=== PATIENT | female | born 1935 | race Caucasian/White ===

== ENCOUNTER → 2017-01-01 | Outpatient (CLI) | payer MEDICARE ==
[~2017-01-01] MED LIST: ASPI-496 PO; ATOR20TA9 PO; BUPR100T11 PO; CALC0.5C PO; CALC200T10 PO; CYAN10005 PO; HYDR-3144 PO; LEVO50TA PO; LEVO88TA4 PO; LISI5TAB7 PO; MAGN400T7 PO; MULT-257 PO; Magnesium Oxide PO; OMEP20TA62 PO; POTA20TA6 PO; PRAS10TA4 PO; ROPI1TAB2 PO; SIMV20TA3 PO
== END | disposition home or self-care (01) ==
LOC: CFH 09:54
PROVIDERS: ATTEND Radiology Radiation Oncology
DX: C34.12 Malignant neoplasm of upper lobe, left bronchus or lung (principal); I25.10 Atherosclerotic heart disease of native coronary artery without angina pectoris; K80.80 Other cholelithiasis without obstruction; J43.9 Emphysema, unspecified; J47.9 Bronchiectasis, uncomplicated; R91.1 Solitary pulmonary nodule; J98.4 Other disorders of lung; M85.80 Other specified disorders of bone density and structure, unspecified site; M41.85 Other forms of scoliosis, thoracolumbar region; M48.54XA Collapsed vertebra, not elsewhere classified, thoracic region, initial encounter for fracture
CPT/HCPCS: 71250

== ENCOUNTER → 2017-01-02 | Outpatient (CLI) | payer MEDICARE | END | disposition home or self-care (01) | LOC: ROC 09:53 | PROVIDERS: ATTEND Radiology Radiation Oncology | DX: C34.12 Malignant neoplasm of upper lobe, left bronchus or lung (principal); R91.8 Other nonspecific abnormal finding of lung field | CPT/HCPCS: 99213; G0463 ==

== ENCOUNTER → 2017-05-15 | Outpatient (CLI) | payer MEDICARE | END | disposition home or self-care (01) | LOC: CFH 13:51 | PROVIDERS: ATTEND Radiology Radiation Oncology | DX: J43.9 Emphysema, unspecified (principal); J47.9 Bronchiectasis, uncomplicated; R91.8 Other nonspecific abnormal finding of lung field; I70.0 Atherosclerosis of aorta; M47.894 Other spondylosis, thoracic region; M47.896 Other spondylosis, lumbar region; K80.20 Calculus of gallbladder without cholecystitis without obstruction; C34.12 Malignant neoplasm of upper lobe, left bronchus or lung; I10 Essential (primary) hypertension | CPT/HCPCS: 71250 ==

== ENCOUNTER → 2017-08-24 | Outpatient (CLI) | payer MEDICARE ==
[~2017-08-24] MED LIST changes: -CALC200T10 PO; +CALC200T56 PO; -HYDR-3144 PO; +HYDR-3245 PO
== END | disposition home or self-care (01) ==
LOC: ROC 11:00
PROVIDERS: ATTEND Radiology Radiation Oncology
DX: R91.1 Solitary pulmonary nodule (principal); Z71.6 Tobacco abuse counseling; Z88.0 Allergy status to penicillin
CPT/HCPCS: 99213; G0463

== ENCOUNTER → 2017-12-31 | Outpatient (CLI) | payer MEDICARE ==
[~2017-12-31] MED LIST changes: -CALC0.5C PO; +CALC0.5C9 PO
== END | disposition home or self-care (01) ==
LOC: CFH 12:12
PROVIDERS: ATTEND Radiology Radiation Oncology
DX: R91.8 Other nonspecific abnormal finding of lung field (principal); C34.12 Malignant neoplasm of upper lobe, left bronchus or lung; I10 Essential (primary) hypertension
CPT/HCPCS: 71250

== ENCOUNTER → 2018-01-04 | Outpatient (CLI) | payer MEDICARE | LOC: ROC 08:21 | PROVIDERS: ATTEND Radiology Radiation Oncology | DX: C34.12 Malignant neoplasm of upper lobe, left bronchus or lung (principal) | CPT/HCPCS: 99213; G0463 ==

== ENCOUNTER 2018-03-03 20:50 | Inpatient (IN) | payer MEDICARE ==
[~2018-03-03] VITALS: Ht 157.5 cm; Wt 51.2 kg
[2018-03-03] MEDS ORDERED: SODIUM CHLORIDE FLUSH 10ML SYR IVF ONE (21:30)
[2018-03-03 21:52] LABS: BASOPHILS # (AUTO) 0.02 x10^3/uL (0-0.1); BASOPHILS % (AUTO) 0 % (0-1); EOSINOPHILS # (AUTO) 0.03 x10^3/uL (0-0.4); EOSINOPHILS % (AUTO) 0 % (1-7); LYMPHOCYTES # (AUTO) 0.78 x10^3/uL (1-3.4); LYMPHOCYTES % (AUTO) 7 % (22-44); MD NO; MEAN CORPUSCULAR HEMOGLOBIN 35.2 pg (27.0-34.8); MEAN CORPUSCULAR HGB CONC 33.5 g/dL (32.4-35.8); MEAN PLATELET VOLUME 7.2 fL (7.4-10.4); MONOCYTES # (AUTO) 0.88 x10^3/uL (0.2-0.8); MONOCYTES % (AUTO) 8 % (2-9); NEUTROPHILS # (AUTO) 9.62 x10^3/uL (1.8-6.8); NEUTROPHILS % (AUTO) 85 % (42-75); PLATELET COUNT 206 x10^3/uL (130-400); RED BLOOD COUNT 4.15 x10^6/uL (3.82-5.3); RED CELL DISTRIBUTION WIDTH 13.8 % (9.6-15.2)
[2018-03-03] MEDS ORDERED: HYDROcodone/APAP 10/325 MG TABLET ONE (21:59)
[2018-03-03] MEDS ORDERED: ONDANSETRON ODT 4 MG ONE (21:59)
[2018-03-03] MEDS ORDERED: SODIUM CHLORIDE 0.9%, 500ML IVBOLUS ONE (22:00)
[2018-03-03] MEDS ORDERED: ONDANSETRON ODT 4 MG PO ONE (22:00)
[2018-03-03] MEDS ORDERED: HYDROcodone/APAP 10/325 MG TABLET PO ONE (22:00)
[2018-03-03 22:03] LABS: ANION GAP 8 mmol/L (5-15); CALCIUM 8.5 mg/dL (8.5-10.1); CHLORIDE 102 mmol/L (98-107); CREATININE 0.67 mg/dL (0.55-1.02)
[2018-03-03] MEDS ORDERED: ONDANSETRON ODT 4 MG PO PRN (23:30)
[2018-03-03] MEDS ORDERED: morphine SULFATE 10 MG/ML, 1ML IVPush PRN (23:30)
[2018-03-03] MEDS ORDERED: MULTIVITAMIN 1 TABLET PO PRN (23:30)
[2018-03-04 00:18] VITALS: BP 88/60
[2018-03-04] MEDS: NICOTINE 7 MG/24 HR PATCH.TD24 TD SCH (00:52)
[2018-03-04] MEDS: HYDROcodone/APAP 10/325 MG TABLET PO PRN ×2 (01:47→06:16)
[2018-03-04] MEDS ORDERED: ROPINIROLE 1MG TABLET PO SCH ×2 (02:30→21:00)
[2018-03-04] MEDS: ROPINIROLE 1MG TABLET PO SCH ×2 (02:31→21:00)
[2018-03-04 04:53] LABS: INTERNATIONAL NORMALIZED RATIO 0.95 (0.93-1.1); PROTHROMBIN TIME 9.9 Seconds (9.6-11.5)
[2018-03-04 05:14] VITALS: BP_SYST 70; BP_SYST 82; BP_DIAS 48; BP_DIAS 56
[2018-03-04] MEDS: LEVOTHYROXINE 50 MCG TABLET PO SCH (06:00)
[2018-03-04] MEDS ORDERED: LEVOTHYROXINE 25 MCG TABLET ONE (06:15)
[2018-03-04 07:25] VITALS: BP 81/63
[2018-03-04] MEDS ORDERED: SODIUM CHLORIDE 0.9%, 500ML IVBOLUS ONE (08:00)
[2018-03-04] MEDS: SODIUM CHLORIDE 0.9% 1,000 ML IV SCH ×2 (08:13→20:25)
[2018-03-04] MEDS: CYANOCOBALAMIN 1,000 MCG TABLET PO SCH (08:14)
[2018-03-04] MEDS: BUPROPION SR 150 MG TABLET PO SCH ×2 (08:14→20:27)
[2018-03-04] MEDS: MAGNESIUM OXIDE 400 MG TABLET PO SCH ×3 (08:14→20:27)
[2018-03-04] MEDS: OMEPRAZOLE 20 MG CAPSULE.DR PO SCH (08:14)
[2018-03-04] MEDS: ASPIRIN 81 MG TABLET EC PO SCH (08:14)
[2018-03-04 10:45] VITALS: BP 84/51
[2018-03-04 14:05] VITALS: BP 87/60
[2018-03-04] MEDS: ENOXAPARIN 40 MG/0.4 ML SQ SCH (15:41)
[2018-03-04] MEDS: ACETAMINOPHEN 500 MG TABLET PO SCH ×2 (15:41→20:27)
[2018-03-04 19:30] VITALS: BP 83/41
[2018-03-04] MEDS: ATORVASTATIN 20 MG TABLET PO SCH (20:27)
[2018-03-05] MEDS: NICOTINE 7 MG/24 HR PATCH.TD24 TD SCH ×2 (00:49→20:49)
[2018-03-05 01:58] VITALS: BP 90/55
[2018-03-05] MEDS: ACETAMINOPHEN 500 MG TABLET PO SCH ×4 (03:35→20:49)
[2018-03-05] MEDS: LEVOTHYROXINE 50 MCG TABLET PO SCH (06:00)
[2018-03-05] MEDS ORDERED: LEVOTHYROXINE 25 MCG TABLET ONE (06:10)
[2018-03-05] MEDS: SODIUM CHLORIDE 0.9% 1,000 ML IV SCH ×2 (06:22→15:52)
[2018-03-05 06:42] VITALS: BP 93/60
[2018-03-05 06:46] LABS: BASOPHILS # (AUTO) 0.06 x10^3/uL (0-0.1); BASOPHILS % (AUTO) 1 % (0-1); EOSINOPHILS # (AUTO) 0.03 x10^3/uL (0-0.4); EOSINOPHILS % (AUTO) 0 % (1-7); LYMPHOCYTES # (AUTO) 0.58 x10^3/uL (1-3.4); LYMPHOCYTES % (AUTO) 7 % (22-44); MD NO; MEAN CORPUSCULAR HEMOGLOBIN 35.3 pg (27.0-34.8); MEAN CORPUSCULAR HGB CONC 33.5 g/dL (32.4-35.8); MEAN CORPUSCULAR VOLUME 105.3 fL (80-100); MEAN PLATELET VOLUME 7.3 fL (7.4-10.4); MONOCYTES % (AUTO) 11 % (2-9); NEUTROPHILS # (AUTO) 6.89 x10^3/uL (1.8-6.8); NEUTROPHILS % (AUTO) 82 % (42-75); PLATELET COUNT 158 x10^3/uL (130-400); RED BLOOD COUNT 3.59 x10^6/uL (3.82-5.3); RED CELL DISTRIBUTION WIDTH 13.6 % (9.6-15.2)
[2018-03-05] MEDS: OMEPRAZOLE 20 MG CAPSULE.DR PO SCH (08:27)
[2018-03-05] MEDS: BUPROPION SR 150 MG TABLET PO SCH ×2 (08:27→20:50)
[2018-03-05] MEDS: MAGNESIUM OXIDE 400 MG TABLET PO SCH ×3 (08:27→20:49)
[2018-03-05] MEDS: CYANOCOBALAMIN 1,000 MCG TABLET PO SCH (08:27)
[2018-03-05] MEDS: ASPIRIN 81 MG TABLET EC PO SCH (08:28)
[2018-03-05] MEDS: HYDROcodone/APAP 10/325 MG TABLET PO PRN ×3 (09:44→21:59)
[2018-03-05 12:15] LABS: CLOSTRIDIUM DIFFICILE ANTIGEN NEGATIVE; CLOSTRIDIUM DIFFICILE TOXIN NEGATIVE (Negative)
[2018-03-05 14:08] VITALS: BP 89/68
[2018-03-05 15:30] VITALS: BP 109/73
[2018-03-05] MEDS: ENOXAPARIN 40 MG/0.4 ML SQ SCH (15:53)
[2018-03-05 19:29] VITALS: BP 98/65
[2018-03-05] MEDS: ROPINIROLE 1MG TABLET PO SCH (20:49)
[2018-03-05] MEDS: ATORVASTATIN 20 MG TABLET PO SCH (20:50)
[2018-03-06] MEDS: SODIUM CHLORIDE 0.9% 1,000 ML IV SCH ×2 (02:00→11:45)
[2018-03-06] MEDS ORDERED: LEVOTHYROXINE 25 MCG TABLET ONE (05:50)
[2018-03-06] MEDS: LEVOTHYROXINE 50 MCG TABLET PO SCH (05:55)
[2018-03-06] MEDS: HYDROcodone/APAP 10/325 MG TABLET PO PRN ×2 (05:56→10:20)
[2018-03-06 08:28] VITALS: BP 95/66
[2018-03-06] MEDS: ACETAMINOPHEN 500 MG TABLET PO SCH (09:00)
[2018-03-06] MEDS: BUPROPION SR 150 MG TABLET PO SCH (09:34)
[2018-03-06] MEDS: ASPIRIN 81 MG TABLET EC PO SCH (09:36)
[2018-03-06] MEDS: CYANOCOBALAMIN 1,000 MCG TABLET PO SCH (09:36)
[2018-03-06] MEDS: OMEPRAZOLE 20 MG CAPSULE.DR PO SCH (09:36)
[2018-03-06] MEDS: MAGNESIUM OXIDE 400 MG TABLET PO SCH (09:36)
== END 2018-03-06 13:49 | DRG 536 ==
LOC: ED 23:02 → EDIP 23:32 → 4NOR 23:45
PROVIDERS: ADMIT Family Medicine; ATTEND Family Medicine
DX: S32.592A Other specified fracture of left pubis, initial encounter for closed fracture (principal); I95.9 Hypotension, unspecified; Z86.74 Personal history of sudden cardiac arrest; E86.0 Dehydration; J44.9 Chronic obstructive pulmonary disease, unspecified; S32.512A Fracture of superior rim of left pubis, initial encounter for closed fracture; F17.210 Nicotine dependence, cigarettes, uncomplicated; M11.252 Other chondrocalcinosis, left hip; W18.30XA Fall on same level, unspecified, initial encounter; I25.10 Atherosclerotic heart disease of native coronary artery without angina pectoris; G25.81 Restless legs syndrome; G89.29 Other chronic pain; K21.9 Gastro-esophageal reflux disease without esophagitis; E89.0 Postprocedural hypothyroidism; R09.02 Hypoxemia; M54.5 Low back pain; E78.5 Hyperlipidemia, unspecified; F32.9 Major depressive disorder, single episode, unspecified; F10.10 Alcohol abuse, uncomplicated; Z95.5 Presence of coronary angioplasty implant and graft; Z85.118 Personal history of other malignant neoplasm of bronchus and lung; Z90.710 Acquired absence of both cervix and uterus; Z82.49 Family history of ischemic heart disease and other diseases of the circulatory system; Z79.891 Long term (current) use of opiate analgesic; Y92.009 Unspecified place in unspecified non-institutional (private) residence as the place of occurrence of the external cause; I25.2 Old myocardial infarction; Z95.818 Presence of other cardiac implants and grafts; Y93.89 Activity, other specified; Y99.8 Other external cause status; Z88.0 Allergy status to penicillin
CPT/HCPCS: 36415; 72192; 80048; 82306; 85025; 85610; 87324; 99285; J1650; Q0162; J7030; J7040

== ENCOUNTER → 2018-09-07 | Outpatient (CLI) | payer MEDICARE | END | disposition home or self-care (01) | LOC: CFH 08:13 | PROVIDERS: ATTEND Radiology Radiation Oncology | DX: C34.12 Malignant neoplasm of upper lobe, left bronchus or lung (principal) | CPT/HCPCS: 71250 ==

== ENCOUNTER → 2018-09-13 | Outpatient (CLI) | payer MEDICARE ==
[~2018-09-13] MED LIST changes: +ATOR20TA37 PO; -ATOR20TA9 PO
== END | disposition home or self-care (01) ==
LOC: ROC 09:47
PROVIDERS: ATTEND Radiology Radiation Oncology
DX: Z08 Encounter for follow-up examination after completed treatment for malignant neoplasm (principal); C34.12 Malignant neoplasm of upper lobe, left bronchus or lung
CPT/HCPCS: 99213; G0463

== ENCOUNTER → 2019-02-10 | Outpatient (CLI) | payer MEDICARE | END | disposition home or self-care (01) | LOC: CFH 15:41 | PROVIDERS: ATTEND Radiology Radiation Oncology | DX: C34.12 Malignant neoplasm of upper lobe, left bronchus or lung (principal); R91.8 Other nonspecific abnormal finding of lung field; E27.8 Other specified disorders of adrenal gland | CPT/HCPCS: 71250 ==

== ENCOUNTER 2019-02-14 08:26 | Outpatient (CLI) | payer MEDICARE | END 2019-02-14 23:59 | disposition home or self-care (01) | LOC: ROC 08:26 | PROVIDERS: ATTEND Radiology Radiation Oncology | DX: Z02.9 Encounter for administrative examinations, unspecified (principal) ==

== ENCOUNTER 2019-02-17 09:32 | Outpatient (CLI) | payer MEDICARE | END 2019-02-17 23:59 | disposition home or self-care (01) | LOC: ROC 09:32 | PROVIDERS: ATTEND Radiology Radiation Oncology | DX: Z08 Encounter for follow-up examination after completed treatment for malignant neoplasm (principal); Z85.118 Personal history of other malignant neoplasm of bronchus and lung | CPT/HCPCS: 99213; G0463 ==

== ENCOUNTER 2019-03-31 16:23 | Inpatient (IN) | payer MEDICARE ==
[~2019-03-31] VITALS: Ht 157.5 cm; Wt 46.3 kg
--- NOTE | 2019-03-31 16:42 | NUR ---
83 YR OLD FEMLAE ARRIVED VIA EMS WITH C/O "DEHYDRATION, UNABLE TO EAT OR DRINK R/T VOMITING" PER REPORT PT DRINKS ETOH, LAST INTAKE "A LITTLE BIT THIS AM" PT ARRIVED WITH NS INFUSING. 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 PT PLACED ON MONITORS, AUTO BP AND PULSE OX MONITOR. FAMILY AT BEDSIDE. DR PIERCE AT BEDSIDE TO EVAL PT.
--- NOTE | 2019-03-31 17:04 | NUR ---
PT RECEIVED 300MLS LEFT FROM LITER STARTED BY EMS. DR PIERCE AWARE PT BP 86/57, ORDER FOR UP TO 2L NS FOR BP.
--- NOTE | 2019-03-31 17:06 | NUR ---
1ST L NS STARTED. EXPLAINED MINI CATH TO PT. PT AGREEABLE TO PROCEDURE.
[2019-03-31 17:14] LABS: BASOPHILS # (AUTO) 0.03 x10^3/uL (0-0.1); BASOPHILS % (AUTO) 0 % (0-1); EOSINOPHILS # (AUTO) 0.03 x10^3/uL (0-0.4); EOSINOPHILS % (AUTO) 0 % (1-7); LYMPHOCYTES # (AUTO) 0.83 x10^3/uL (1-3.4); LYMPHOCYTES % (AUTO) 9 % (22-44); MD NO; MEAN CORPUSCULAR HEMOGLOBIN 35.1 pg (27.0-34.8); MEAN CORPUSCULAR HGB CONC 32.9 g/dL (32.4-35.8); MEAN CORPUSCULAR VOLUME 106.7 fL (80-100); MEAN PLATELET VOLUME 7.3 fL (7.4-10.4); MONOCYTES # (AUTO) 0.56 x10^3/uL (0.2-0.8); MONOCYTES % (AUTO) 6 % (2-9); NEUTROPHILS # (AUTO) 7.48 x10^3/uL (1.8-6.8); NEUTROPHILS % (AUTO) 84 % (42-75); PLATELET COUNT 257 x10^3/uL (130-400); RED BLOOD COUNT 4.03 x10^6/uL (3.82-5.3); RED CELL DISTRIBUTION WIDTH 13.8 % (9.6-15.2)
[2019-03-31 17:26] LABS: ALANINE AMINOTRANSFERASE 14 U/L (12-78); ALBUMIN 2.5 g/dL (3.4-5.0); ANION GAP 9 mmol/L (5-15); CALCIUM 6.2 mg/dL (8.5-10.1); CHLORIDE 109 mmol/L (98-107); CREATININE 0.56 mg/dL (0.55-1.02)
[2019-03-31 17:31] LABS: ALKALINE PHOSPHATASE 67 U/L (45-117); BILIRUBIN,TOTAL 0.5 mg/dL (0.2-1.0); TOTAL PROTEIN 5.5 g/dL (6.4-8.2); TROPONIN I < 0.015 ng/mL (0.000-0.045)
[2019-03-31 17:38] LABS: MICROSCOPIC NOT IND
[2019-03-31 17:44] LABS: CULTURE INDICATED? NO
[2019-03-31] MEDS ORDERED: SODIUM CHLORIDE 0.9% 1,000ML IVBOLUS ONE (18:00)
--- NOTE | 2019-03-31 18:39 | NUR ---
DR PIERCE AT BEDSIDE TO RE-EVAL PT. PT TO BE ADMISSION. PT VOICED CONCERNS FROM PRIOR ADMISSIONS "WHEN MY BLOOD PRESSURE HAS BEEN LOW AND THEY DONT LISTEN TO ME AND LET ME HAVE MY PAIN MEDICATIONS. I HAVE BEEN TAKING THEM FOR A LONG TIME"
--- NOTE | 2019-03-31 19:04 | NUR ---
REPORT RECEIVED FROM SHAWN PANDEY.
--- NOTE | 2019-03-31 19:06 | NUR ---
REPORT TO HAYLEE PANDEY
--- NOTE | 2019-03-31 19:37 | NUR ---
REPORT GIVEN TO KARLEE PANDEY. ALL QUESTIONS ANSWERED.
[2019-03-31 21:18] VITALS: BP 80/48
[2019-03-31 21:19] VITALS: BP 80/48
[2019-03-31] MEDS ORDERED: HYDROcodone/APAP 10/325 MG TABLET PO PRN (21:30)
[2019-03-31] MEDS ORDERED: LACTASE 9,000 UNITS TABLET PO PRN (21:30)
[2019-03-31] MEDS ORDERED: IBUPROFEN 600 MG TABLET PO PRN (21:30)
[2019-03-31] MEDS ORDERED: ACETAMINOPHEN 325 MG TABLET PO PRN (21:30)
[2019-03-31] MEDS ORDERED: ONDANSETRON ODT 4 MG PO PRN (21:30)
[2019-03-31] MEDS ORDERED: ONDANSETRON 2MG/ML, 2ML IVPush PRN (21:30)
[2019-03-31] MEDS ORDERED: LORazepam 1MG TABLET PO PRN ×4 (21:30)
[2019-03-31] MEDS ORDERED: POTASSIUM CHLORIDE 20 MEQ TAB.ER.PRT PO ONE (21:30)
[2019-03-31] MEDS: OMEPRAZOLE 20 MG CAPSULE.DR PO SCH (21:30)
[2019-03-31] MEDS ORDERED: LORazepam 0.5MG TABLET PO PRN (21:30)
[2019-03-31] MEDS ORDERED: LORazepam 2 MG/ML, 1ML IV PRN ×5 (21:30)
[2019-03-31] MEDS: NS + 20MEQ KCL 1,000 ML IV SCH (21:41)
[2019-03-31] MEDS: NICOTINE 14MG/24 HR PATCH.TD24 TD SCH (21:41)
[2019-03-31] MEDS: ENOXAPARIN 30 MG/0.3 ML SQ SCH (21:41)
[2019-03-31] MEDS: ROPINIROLE 1MG TABLET PO SCH (22:35)
[2019-03-31] MEDS: ATORVASTATIN 20 MG TABLET PO SCH (22:35)
[2019-03-31 22:51] VITALS: BP 90/60
[2019-04-01 01:58] VITALS: BP 106/71
[2019-04-01] MEDS: OMEPRAZOLE 20 MG CAPSULE.DR PO SCH (05:31)
[2019-04-01] MEDS: ASPIRIN 81 MG TABLET EC PO SCH (05:32)
[2019-04-01] MEDS: LEVOTHYROXINE 50 MCG TABLET PO SCH (05:32)
[2019-04-01 06:24] LABS: ANION GAP 11 mmol/L (5-15); CALCIUM 6.3 mg/dL (8.5-10.1); CHLORIDE 116 mmol/L (98-107)
[2019-04-01 07:11] VITALS: BP 113/80
[2019-04-01] MEDS: CYANOCOBALAMIN 1,000 MCG TABLET PO SCH (08:09)
[2019-04-01] MEDS: FOLIC ACID 1 MG TABLET PO SCH (08:09)
[2019-04-01] MEDS ORDERED: MAGNESIUM SULFATE PMX 2GM/50ML 50 ML IV ONE ×2 (08:30→19:00)
[2019-04-01 08:56] LABS: CLOSTRIDIUM DIFFICILE ANTIGEN NEGATIVE; CLOSTRIDIUM DIFFICILE TOXIN NEGATIVE (Negative)
[2019-04-01] MEDS: NS + 20MEQ KCL 1,000 ML IV SCH (09:25)
[2019-04-01] MEDS: HYDROcodone/APAP 5/325 TABLET PO PRN ×2 (10:42→19:50)
[2019-04-01] MEDS: CHOLESTYRAMINE LIGHT 4GM PACKET PO SCH (12:16)
[2019-04-01 12:24] VITALS: BP 90/61
[2019-04-01 18:36] VITALS: BP 90/62
[2019-04-01 19:47] VITALS: BP 103/72
[2019-04-01] MEDS: ATORVASTATIN 20 MG TABLET PO SCH (21:22)
[2019-04-01] MEDS: ENOXAPARIN 30 MG/0.3 ML SQ SCH (21:22)
[2019-04-01] MEDS: NICOTINE 14MG/24 HR PATCH.TD24 TD SCH (21:22)
[2019-04-01] MEDS: ROPINIROLE 1MG TABLET PO SCH (21:22)
[2019-04-02 01:38] VITALS: BP 101/71
[2019-04-02] MEDS: HYDROcodone/APAP 5/325 TABLET PO PRN ×4 (02:04→21:41)
[2019-04-02] MEDS: NS + 20MEQ KCL 1,000 ML IV SCH (03:48)
[2019-04-02] MEDS: OMEPRAZOLE 20 MG CAPSULE.DR PO SCH (05:22)
[2019-04-02] MEDS: ASPIRIN 81 MG TABLET EC PO SCH (05:22)
[2019-04-02] MEDS: LEVOTHYROXINE 50 MCG TABLET PO SCH (05:22)
[2019-04-02 07:49] VITALS: BP 106/72
[2019-04-02 07:58] LABS: ALBUMIN 2.5 g/dL (3.4-5.0); ANION GAP 8 mmol/L (5-15); CALCIUM 6.3 mg/dL (8.5-10.1); CHLORIDE 117 mmol/L (98-107)
[2019-04-02 08:03] LABS: ALANINE AMINOTRANSFERASE 12 U/L (12-78); ALKALINE PHOSPHATASE 70 U/L (45-117); BILIRUBIN,TOTAL 0.7 mg/dL (0.2-1.0); CREATININE 0.46 mg/dL (0.55-1.02); TOTAL PROTEIN 5.4 g/dL (6.4-8.2)
[2019-04-02 08:10] LABS: BASOPHILS # (AUTO) 0.03 x10^3/uL (0-0.1); BASOPHILS % (AUTO) 0 % (0-1); EOSINOPHILS # (AUTO) 0.07 x10^3/uL (0-0.4); EOSINOPHILS % (AUTO) 1 % (1-7); LYMPHOCYTES # (AUTO) 0.65 x10^3/uL (1-3.4); LYMPHOCYTES % (AUTO) 9 % (22-44); MD NO; MEAN CORPUSCULAR HGB CONC 32.7 g/dL (32.4-35.8); MEAN PLATELET VOLUME 7.5 fL (7.4-10.4); MONOCYTES # (AUTO) 0.42 x10^3/uL (0.2-0.8); MONOCYTES % (AUTO) 6 % (2-9); NEUTROPHILS # (AUTO) 6.12 x10^3/uL (1.8-6.8); NEUTROPHILS % (AUTO) 84 % (42-75); PLATELET COUNT 234 x10^3/uL (130-400); RED BLOOD COUNT 3.81 x10^6/uL (3.82-5.3); RED CELL DISTRIBUTION WIDTH 13.6 % (9.6-15.2)
[2019-04-02] MEDS ORDERED: MAGNESIUM SULFATE PMX 2GM/50ML 50 ML IV ONE (09:00)
[2019-04-02] MEDS: FOLIC ACID 1 MG TABLET PO SCH (10:01)
[2019-04-02] MEDS: CHOLESTYRAMINE LIGHT 4GM PACKET PO SCH (10:02)
[2019-04-02] MEDS: CYANOCOBALAMIN 1,000 MCG TABLET PO SCH (10:08)
[2019-04-02 12:15] VITALS: BP 133/81
[2019-04-02] MEDS ORDERED: CALCIUM CARBONATE 500 MG TABLET PO ONE (12:25)
[2019-04-02] MEDS ORDERED: LOPERAMIDE 1 MG/5 ML, 10ML UDC PO ONE (12:30)
[2019-04-02 19:02] VITALS: BP 99/56
[2019-04-02] MEDS: NICOTINE 14MG/24 HR PATCH.TD24 TD SCH (20:44)
[2019-04-02] MEDS: ENOXAPARIN 30 MG/0.3 ML SQ SCH (20:44)
[2019-04-02] MEDS: CALCIUM CARBONATE 500 MG TABLET PO SCH (20:44)
[2019-04-02] MEDS: ATORVASTATIN 20 MG TABLET PO SCH (20:44)
[2019-04-02] MEDS: ROPINIROLE 1MG TABLET PO SCH (20:44)
[2019-04-02] MEDS ORDERED: NS + 20MEQ KCL 1,000 ML IV SCH (21:13)
[2019-04-03 01:02] VITALS: BP 117/81
[2019-04-03] MEDS: ASPIRIN 81 MG TABLET EC PO SCH (04:18)
[2019-04-03] MEDS: HYDROcodone/APAP 5/325 TABLET PO PRN ×3 (04:18→18:38)
[2019-04-03] MEDS: OMEPRAZOLE 20 MG CAPSULE.DR PO SCH (04:18)
[2019-04-03] MEDS: LEVOTHYROXINE 50 MCG TABLET PO SCH (04:18)
[2019-04-03] MEDS: LOPERAMIDE 2 MG CAPSULE PO PRN ×2 (04:18→11:22)
[2019-04-03 05:25] LABS: ANION GAP 5 mmol/L (5-15); CALCIUM 7.3 mg/dL (8.5-10.1); CHLORIDE 115 mmol/L (98-107); CREATININE 0.54 mg/dL (0.55-1.02)
[2019-04-03 06:58] VITALS: BP 94/64
[2019-04-03] MEDS: FOLIC ACID 1 MG TABLET PO SCH (09:10)
[2019-04-03] MEDS: CYANOCOBALAMIN 1,000 MCG TABLET PO SCH (09:10)
[2019-04-03] MEDS: CALCIUM CARBONATE 500 MG TABLET PO SCH ×2 (09:10→19:57)
[2019-04-03 13:06] VITALS: BP 91/65
[2019-04-03 19:31] VITALS: BP_SYST 74; BP_DIAS 48; BP_DIAS 52
[2019-04-03] MEDS: ROPINIROLE 1MG TABLET PO SCH (19:57)
[2019-04-03] MEDS: ATORVASTATIN 20 MG TABLET PO SCH (19:57)
[2019-04-03] MEDS: ENOXAPARIN 30 MG/0.3 ML SQ SCH (19:58)
[2019-04-03] MEDS: NICOTINE 14MG/24 HR PATCH.TD24 TD SCH (19:58)
[2019-04-03] MEDS ORDERED: SODIUM CHLORIDE 0.9%, 500ML IVBOLUS ONE (21:00)
[2019-04-03] MEDS ORDERED: SODIUM CHLORIDE 0.9% 1,000 ML, SODIUM CHLORIDE 0.9% 1,000 ML IV SCH (21:30)
[2019-04-04 01:28] VITALS: BP 98/60
[2019-04-04] MEDS: HYDROcodone/APAP 5/325 TABLET PO PRN ×2 (01:36→15:40)
[2019-04-04] MEDS: ASPIRIN 81 MG TABLET EC PO SCH (05:32)
[2019-04-04] MEDS: OMEPRAZOLE 20 MG CAPSULE.DR PO SCH (05:32)
[2019-04-04] MEDS: LEVOTHYROXINE 50 MCG TABLET PO SCH (05:32)
[2019-04-04 06:47] LABS: BASOPHILS # (AUTO) 0.01 x10^3/uL (0-0.1); BASOPHILS % (AUTO) 0 % (0-1); EOSINOPHILS # (AUTO) 0.14 x10^3/uL (0-0.4); EOSINOPHILS % (AUTO) 2 % (1-7); LYMPHOCYTES # (AUTO) 0.74 x10^3/uL (1-3.4); LYMPHOCYTES % (AUTO) 12 % (22-44); MD NO; MEAN CORPUSCULAR HEMOGLOBIN 35.9 pg (27.0-34.8); MEAN CORPUSCULAR HGB CONC 33.1 g/dL (32.4-35.8); MEAN CORPUSCULAR VOLUME 108.2 fL (80-100); MEAN PLATELET VOLUME 7.9 fL (7.4-10.4); MONOCYTES # (AUTO) 0.56 x10^3/uL (0.2-0.8); MONOCYTES % (AUTO) 9 % (2-9); NEUTROPHILS # (AUTO) 4.81 x10^3/uL (1.8-6.8); NEUTROPHILS % (AUTO) 77 % (42-75); PLATELET COUNT 234 x10^3/uL (130-400); RED BLOOD COUNT 3.66 x10^6/uL (3.82-5.3); RED CELL DISTRIBUTION WIDTH 13.4 % (9.6-15.2)
[2019-04-04 06:59] LABS: ANION GAP 6 mmol/L (5-15); CALCIUM 7.1 mg/dL (8.5-10.1); CHLORIDE 117 mmol/L (98-107)
[2019-04-04 07:02] VITALS: BP 90/60
[2019-04-04 07:02] LABS: CREATININE 0.47 mg/dL (0.55-1.02)
[2019-04-04] MEDS: FOLIC ACID 1 MG TABLET PO SCH (07:40)
[2019-04-04] MEDS: CALCIUM CARBONATE 500 MG TABLET PO SCH ×2 (07:40→20:09)
[2019-04-04] MEDS: CYANOCOBALAMIN 1,000 MCG TABLET PO SCH (07:40)
[2019-04-04] MEDS: LOPERAMIDE 2 MG CAPSULE PO PRN ×2 (07:40→09:45)
[2019-04-04] MEDS: MAGNESIUM OXIDE 400 MG TABLET PO SCH ×3 (11:57→20:10)
[2019-04-04] MEDS: AQUAPHOR NATURAL HEALING OINT 50GM TP SCH ×2 (11:57→22:25)
[2019-04-04 15:29] VITALS: BP 97/67
[2019-04-04 18:58] VITALS: BP 90/50
[2019-04-04] MEDS ORDERED: ENOXAPARIN 40 MG/0.4 ML SQ SCH (20:00)
[2019-04-04] MEDS: ATORVASTATIN 20 MG TABLET PO SCH (20:09)
[2019-04-04] MEDS: ROPINIROLE 1MG TABLET PO SCH (22:25)
[2019-04-04] MEDS: NICOTINE 14MG/24 HR PATCH.TD24 TD SCH (22:25)
[2019-04-04] MEDS ORDERED: ALBUTEROL SULFATE 2.5MG/0.5ML NPPB PRN (23:00)
[2019-04-05 02:01] VITALS: BP 108/62
[2019-04-05] MEDS: OMEPRAZOLE 20 MG CAPSULE.DR PO SCH (04:39)
[2019-04-05] MEDS: ASPIRIN 81 MG TABLET EC PO SCH (04:39)
[2019-04-05] MEDS: LEVOTHYROXINE 50 MCG TABLET PO SCH (05:00)
[2019-04-05 05:55] LABS: ANION GAP 3 mmol/L (5-15); CALCIUM 7.7 mg/dL (8.5-10.1); CHLORIDE 113 mmol/L (98-107)
[2019-04-05 05:56] LABS: CREATININE 0.49 mg/dL (0.55-1.02)
[2019-04-05 06:22] VITALS: BP 101/63
[2019-04-05] MEDS: HYDROcodone/APAP 5/325 TABLET PO PRN ×2 (06:25→15:22)
[2019-04-05] MEDS ORDERED: MAGNESIUM SULFATE PMX 4GM/100M 100 ML IV ONE (07:00)
[2019-04-05] MEDS: MAGNESIUM OXIDE 400 MG TABLET PO SCH ×2 (07:49→17:05)
[2019-04-05] MEDS: CYANOCOBALAMIN 1,000 MCG TABLET PO SCH (07:49)
[2019-04-05] MEDS: FOLIC ACID 1 MG TABLET PO SCH (07:49)
[2019-04-05] MEDS: CALCIUM CARBONATE 500 MG TABLET PO SCH (07:49)
[2019-04-05] MEDS: AQUAPHOR NATURAL HEALING OINT 50GM TP SCH (08:05)
[2019-04-05] MEDS ORDERED: CALC500T11 PO (12:44)
[2019-04-05] MEDS ORDERED: LOPE2CAP PO (12:44)
[2019-04-05 13:23] VITALS: BP 95/63
[2019-04-05] MEDS ORDERED: HYDR-3237 PO (15:41)
== END 2019-04-05 18:43 | DRG 640 ==
LOC: ED 18:34 → EDIP 18:44 → 4WST 20:21
PROVIDERS: ADMIT Family Medicine; ATTEND Family Medicine
DX: E86.0 Dehydration (principal); E43 Unspecified severe protein-calorie malnutrition; C34.90 Malignant neoplasm of unspecified part of unspecified bronchus or lung; Z68.1 Body mass index [BMI] 19.9 or less, adult; K52.9 Noninfective gastroenteritis and colitis, unspecified; E87.6 Hypokalemia; E86.1 Hypovolemia; E83.42 Hypomagnesemia; E83.51 Hypocalcemia; F17.210 Nicotine dependence, cigarettes, uncomplicated; G25.81 Restless legs syndrome; J44.9 Chronic obstructive pulmonary disease, unspecified; K21.9 Gastro-esophageal reflux disease without esophagitis; F32.9 Major depressive disorder, single episode, unspecified; E03.9 Hypothyroidism, unspecified; G89.29 Other chronic pain; I25.10 Atherosclerotic heart disease of native coronary artery without angina pectoris; I95.9 Hypotension, unspecified; I25.2 Old myocardial infarction; Z82.49 Family history of ischemic heart disease and other diseases of the circulatory system; Z85.118 Personal history of other malignant neoplasm of bronchus and lung; Z90.710 Acquired absence of both cervix and uterus; Z95.5 Presence of coronary angioplasty implant and graft; Z79.899 Other long term (current) drug therapy; Z88.0 Allergy status to penicillin; Z79.1 Long term (current) use of non-steroidal anti-inflammatories (NSAID); E73.9 Lactose intolerance, unspecified
CPT/HCPCS: 36415; 71045; 74018; 80048; 80053; 81003; 82140; 82607; 83605; 83690; 83735; 83880; 84100; 84443; 84484; 85025; 87040; 87324; 93005; 94640; 96360; 99285; G0378; J1650; J3480; J7611; J3475; J7030; J7040

== ENCOUNTER 2019-07-31 12:41 | Inpatient (IN) | payer MEDICARE ==
[~2019-07-31] VITALS: Ht 157.5 cm; Wt 51.2 kg
[~2019-07-31 12:41] MED LIST changes: +CALC500T11 PO; +CYAN-27 PO; -CYAN10005 PO; +HYDR-3237 PO; +LOPE2CAP PO
--- NOTE | 2019-07-31 12:57 | NUR ---
bib remsa from home aloc weakness per family 2-3 days noted rvr on arrival ao2 incontinent able to answer to name confused to location and time equal rom all extremties iv inplace on arrival
[2019-07-31] MEDS ORDERED: SODIUM CHLORIDE FLUSH 10ML SYR IVF ONE (13:00)
[2019-07-31 13:17] LABS: BASOPHILS # (AUTO) 0.01 x10^3/uL (0-0.1); BASOPHILS % (AUTO) 0 % (0-1); EOSINOPHILS # (AUTO) 0.15 x10^3/uL (0-0.4); EOSINOPHILS % (AUTO) 1 % (1-7); LYMPHOCYTES # (AUTO) 0.99 x10^3/uL (1-3.4); LYMPHOCYTES % (AUTO) 7 % (22-44); MD NO; MEAN CORPUSCULAR HEMOGLOBIN 33.8 pg (27.0-34.8); MEAN CORPUSCULAR HGB CONC 32.7 g/dL (32.4-35.8); MEAN CORPUSCULAR VOLUME 103.3 fL (80-100); MEAN PLATELET VOLUME 7.4 fL (7.4-10.4); MONOCYTES # (AUTO) 1.11 x10^3/uL (0.2-0.8); MONOCYTES % (AUTO) 8 % (2-9); NEUTROPHILS # (AUTO) 11.28 x10^3/uL (1.8-6.8); NEUTROPHILS % (AUTO) 83 % (42-75); PLATELET COUNT 295 x10^3/uL (130-400); RED BLOOD COUNT 4.94 x10^6/uL (3.82-5.3); RED CELL DISTRIBUTION WIDTH 14.6 % (9.6-15.2)
--- NOTE | 2019-07-31 13:24 | NUR ---
has been to and now returned from ct remains alert to name
[2019-07-31 13:28] LABS: ALANINE AMINOTRANSFERASE 9 U/L (12-78); ALBUMIN 2.7 g/dL (3.4-5.0); ANION GAP 12 mmol/L (5-15); CHLORIDE 106 mmol/L (98-107); SALICYLATE LEVEL 1.8 mg/dL (2.8-20.0)
[2019-07-31] MEDS ORDERED: SODIUM CHLORIDE 0.9% 1,000ML IVBOLUS ONE (13:30)
[2019-07-31 13:33] LABS: ALKALINE PHOSPHATASE 56 U/L (45-117); BILIRUBIN,TOTAL 0.5 mg/dL (0.2-1.0); CREATININE 0.74 mg/dL (0.55-1.02); TOTAL PROTEIN 5.9 g/dL (6.4-8.2)
[2019-07-31 13:38] LABS: CALCIUM 5.7 mg/dL (8.5-10.1); TROPONIN I 0.201 ng/mL (0.000-0.045)
[2019-07-31 14:13] LABS: MICROSCOPIC NOT IND
[2019-07-31 14:17] LABS: CULTURE INDICATED? NO
--- NOTE | 2019-07-31 14:20 | NUR ---
lab redrawing calcium level, pt axo to name and date of only. ua sent to lab, pt's son at bedside.
[2019-07-31] MEDS ORDERED: SODIUM CHLORIDE 0.9% 1,000 ML IV ONE (14:48)
[2019-07-31] MEDS ORDERED: ASPIRIN 81 MG TABLET CHEW PO ONE (15:00)
[2019-07-31] MEDS ORDERED: CALCIUM GLUCONATE 0.46MEQ/1ML IVPush ONE (15:00)
[2019-07-31] MEDS ORDERED: CALCIUM GLUCONATE 4.6 MEQ/10 ML ONE (15:02)
[2019-07-31] MEDS ORDERED: ASPIRIN 81 MG TABLET CHEW ONE (15:19)
[2019-07-31] MEDS ORDERED: NITROGLYCERIN 0.4 MG BOTTLE (25 TABS) SL PRN (16:30)
[2019-07-31] MEDS ORDERED: ACETAMINOPHEN 325 MG TABLET PO PRN (16:30)
[2019-07-31] MEDS ORDERED: HYDROcodone/APAP 5/325 TABLET PO PRN (16:30)
[2019-07-31] MEDS ORDERED: MULTIVITAMIN 1 TABLET PO PRN (16:30)
[2019-07-31] MEDS ORDERED: NITROGLYCERIN 0.4 MG/SPRAY SL PRN (16:30)
[2019-07-31] MEDS ORDERED: ENOXAPARIN 40 MG/0.4 ML SQ SCH (16:30)
--- NOTE | 2019-07-31 16:30 | NUR ---
REPORT CALLED TO THE FLOOR
[2019-07-31] MEDS ORDERED: DILTIAZEM 5 MG/ML, 5ML IVPush ONE ×2 (17:00→18:00)
[2019-07-31 17:09] LABS: FREE T4 (FREE THYROXINE) 1.19 ng/dL (0.76-1.46)
[2019-07-31 17:15] VITALS: BP 80/46
[2019-07-31] MEDS: SODIUM CHLORIDE 0.9% 1,000 ML IV SCH (17:15)
[2019-07-31 17:37] VITALS: BP 100/69
[2019-07-31] MEDS ORDERED: POTASSIUM CHLORIDE 20 MEQ TAB.ER.PRT PO ONE ×2 (18:30→19:30)
[2019-07-31 19:00] LABS: ALBUMIN 2.4 g/dL (3.4-5.0); ANION GAP 12 mmol/L (5-15); CHLORIDE 111 mmol/L (98-107); CREATININE 0.47 mg/dL (0.55-1.02)
[2019-07-31] MEDS ORDERED: CEFTRIAXONE PMX 1GM/50ML 50 ML IV SCH (19:00)
[2019-07-31] MEDS ORDERED: SODIUM CHLORIDE 0.9% IV ONE (19:00)
[2019-07-31] MEDS ORDERED: MAGNESIUM SULFATE IV ONE (19:00)
[2019-07-31 19:04] LABS: CALCIUM 5.6 mg/dL (8.5-10.1); TROPONIN I 0.193 ng/mL (0.000-0.045)
[2019-07-31] MEDS ORDERED: CALCIUM GLUCONATE 9.2 MEQ in SODIUM CHLORIDE 0.9% 100 ML IV ONE (19:30)
[2019-07-31] MEDS: BUPROPION SR 150 MG TABLET PO SCH (20:04)
[2019-07-31] MEDS: CALCIUM CARBONATE 500 MG TABLET PO SCH (20:04)
[2019-07-31] MEDS: NICOTINE 21 MG/24 HR PATCH.TD24 TD SCH (20:06)
[2019-07-31] MEDS ORDERED: MAGNESIUM OXIDE 400 MG TABLET PO ONE (20:30)
[2019-07-31 21:21] VITALS: BP 94/62
[2019-07-31] MEDS ORDERED: OMNIPAQUE 350 MG/ML, 100ML BOTTLE ONE (23:59)
[2019-08-01 02:24] LABS: BASOPHILS # (AUTO) 0.04 x10^3/uL (0-0.1); BASOPHILS % (AUTO) 0 % (0-1); EOSINOPHILS # (AUTO) 0.01 x10^3/uL (0-0.4); EOSINOPHILS % (AUTO) 0 % (1-7); LYMPHOCYTES # (AUTO) 0.78 x10^3/uL (1-3.4); LYMPHOCYTES % (AUTO) 9 % (22-44); MD NO; MEAN CORPUSCULAR HEMOGLOBIN 33.2 pg (27.0-34.8); MEAN CORPUSCULAR HGB CONC 32.8 g/dL (32.4-35.8); MEAN CORPUSCULAR VOLUME 101.1 fL (80-100); MEAN PLATELET VOLUME 6.7 fL (7.4-10.4); MONOCYTES # (AUTO) 0.71 x10^3/uL (0.2-0.8); MONOCYTES % (AUTO) 8 % (2-9); NEUTROPHILS # (AUTO) 7.34 x10^3/uL (1.8-6.8); NEUTROPHILS % (AUTO) 83 % (42-75); PLATELET COUNT 263 x10^3/uL (130-400); RED BLOOD COUNT 4.37 x10^6/uL (3.82-5.3); RED CELL DISTRIBUTION WIDTH 14.6 % (9.6-15.2)
[2019-08-01 02:32] VITALS: BP 85/58
[2019-08-01] MEDS: SODIUM CHLORIDE 0.9% 1,000 ML IV SCH ×3 (02:34→21:28)
[2019-08-01 02:36] LABS: ANION GAP 8 mmol/L (5-15); CALCIUM 6.7 mg/dL (8.5-10.1); CHLORIDE 113 mmol/L (98-107); CREATININE 0.63 mg/dL (0.55-1.02)
[2019-08-01 02:40] LABS: TROPONIN I 0.141 ng/mL (0.000-0.045)
[2019-08-01] MEDS: LEVOTHYROXINE 50 MCG TABLET PO SCH (06:17)
[2019-08-01] MEDS: OMEPRAZOLE 20 MG CAPSULE.DR PO SCH (06:17)
[2019-08-01 07:49] VITALS: BP 91/62
[2019-08-01] MEDS: ASPIRIN 81 MG TABLET EC PO SCH (07:57)
[2019-08-01] MEDS: CALCIUM CARBONATE 500 MG TABLET PO SCH ×2 (07:57→20:05)
[2019-08-01] MEDS: BUPROPION SR 150 MG TABLET PO SCH ×2 (07:57→20:05)
[2019-08-01] MEDS: MAGNESIUM OXIDE 400 MG TABLET PO SCH (07:59)
[2019-08-01 15:18] VITALS: BP 79/55
[2019-08-01] MEDS: NICOTINE 21 MG/24 HR PATCH.TD24 TD SCH (20:05)
[2019-08-01] MEDS: APIXABAN 2.5 MG TABLET PO SCH (20:05)
[2019-08-02 00:14] VITALS: BP 82/46
[2019-08-02 05:26] LABS: ALBUMIN 2.4 g/dL (3.4-5.0); ANION GAP 6 mmol/L (5-15); CALCIUM 6.6 mg/dL (8.5-10.1); CHLORIDE 117 mmol/L (98-107)
[2019-08-02 05:30] LABS: ALANINE AMINOTRANSFERASE 9 U/L (12-78); ALKALINE PHOSPHATASE 50 U/L (45-117); BILIRUBIN,TOTAL 0.5 mg/dL (0.2-1.0); CREATININE 0.52 mg/dL (0.55-1.02)
[2019-08-02 05:31] LABS: BASOPHILS # (AUTO) 0.02 x10^3/uL (0-0.1); BASOPHILS % (AUTO) 0 % (0-1); EOSINOPHILS # (AUTO) 0.11 x10^3/uL (0-0.4); EOSINOPHILS % (AUTO) 1 % (1-7); LYMPHOCYTES # (AUTO) 0.65 x10^3/uL (1-3.4); LYMPHOCYTES % (AUTO) 6 % (22-44); MD NO; MEAN CORPUSCULAR HGB CONC 32.1 g/dL (32.4-35.8); MEAN CORPUSCULAR VOLUME 102.8 fL (80-100); MEAN PLATELET VOLUME 7.4 fL (7.4-10.4); MONOCYTES # (AUTO) 0.82 x10^3/uL (0.2-0.8); MONOCYTES % (AUTO) 8 % (2-9); NEUTROPHILS # (AUTO) 8.96 x10^3/uL (1.8-6.8); NEUTROPHILS % (AUTO) 85 % (42-75); PLATELET COUNT 248 x10^3/uL (130-400); RED BLOOD COUNT 3.96 x10^6/uL (3.82-5.3); RED CELL DISTRIBUTION WIDTH 14.7 % (9.6-15.2)
[2019-08-02] MEDS: OMEPRAZOLE 20 MG CAPSULE.DR PO SCH (05:31)
[2019-08-02] MEDS: LEVOTHYROXINE 50 MCG TABLET PO SCH (05:32)
[2019-08-02] MEDS: SODIUM CHLORIDE 0.9% 1,000 ML IV SCH (05:32)
[2019-08-02 06:57] VITALS: BP 103/67
[2019-08-02] MEDS ORDERED: POTASSIUM CHLORIDE 40 MEQ in SODIUM CHLORIDE 0.9% 500 ML IV ONE (09:00)
[2019-08-02] MEDS: APIXABAN 2.5 MG TABLET PO SCH ×2 (09:52→20:04)
[2019-08-02] MEDS: BUPROPION SR 150 MG TABLET PO SCH ×2 (09:52→20:04)
[2019-08-02] MEDS: CALCIUM CARBONATE 500 MG TABLET PO SCH ×2 (09:52→20:04)
[2019-08-02] MEDS: ASPIRIN 81 MG TABLET EC PO SCH (09:52)
[2019-08-02] MEDS: MAGNESIUM OXIDE 400 MG TABLET PO SCH (09:52)
[2019-08-02] MEDS ORDERED: MAGNESIUM SULFATE PMX 2GM/50ML 50 ML IV ONE (10:30)
[2019-08-02 12:20] VITALS: BP 111/73
[2019-08-02 14:02] VITALS: BP 83/33
[2019-08-02] MEDS ORDERED: SODIUM CHLORIDE 0.9% 1,000 ML IV SCH ×3 (16:14)
[2019-08-02 18:32] VITALS: BP 91/49
[2019-08-02] MEDS: NICOTINE 21 MG/24 HR PATCH.TD24 TD SCH (20:05)
[2019-08-03 00:25] VITALS: BP 92/46
[2019-08-03] MEDS: OMEPRAZOLE 20 MG CAPSULE.DR PO SCH (05:42)
[2019-08-03] MEDS: LEVOTHYROXINE 50 MCG TABLET PO SCH (05:42)
[2019-08-03 06:17] LABS: BASOPHILS # (AUTO) 0.01 x10^3/uL (0-0.1); BASOPHILS % (AUTO) 0 % (0-1); EOSINOPHILS # (AUTO) 0.13 x10^3/uL (0-0.4); EOSINOPHILS % (AUTO) 1 % (1-7); LYMPHOCYTES % (AUTO) 4 % (22-44); MD NO; MEAN CORPUSCULAR HEMOGLOBIN 33.8 pg (27.0-34.8); MEAN CORPUSCULAR HGB CONC 32.5 g/dL (32.4-35.8); MEAN CORPUSCULAR VOLUME 104.1 fL (80-100); MEAN PLATELET VOLUME 8.2 fL (7.4-10.4); MONOCYTES # (AUTO) 1.02 x10^3/uL (0.2-0.8); MONOCYTES % (AUTO) 7 % (2-9); NEUTROPHILS # (AUTO) 12.14 x10^3/uL (1.8-6.8); NEUTROPHILS % (AUTO) 87 % (42-75); PLATELET COUNT 310 x10^3/uL (130-400); RED BLOOD COUNT 4.09 x10^6/uL (3.82-5.3); RED CELL DISTRIBUTION WIDTH 14.8 % (9.6-15.2)
[2019-08-03 06:25] LABS: CHLORIDE 114 mmol/L (98-107)
[2019-08-03 06:29] LABS: ALANINE AMINOTRANSFERASE 12 U/L (12-78); ALBUMIN 2.7 g/dL (3.4-5.0); ALKALINE PHOSPHATASE 61 U/L (45-117); ANION GAP 6 mmol/L (5-15); BILIRUBIN,TOTAL 0.6 mg/dL (0.2-1.0); CALCIUM 7.3 mg/dL (8.5-10.1); CREATININE 0.58 mg/dL (0.55-1.02); TOTAL PROTEIN 5.8 g/dL (6.4-8.2)
[2019-08-03 07:40] VITALS: BP 94/60
[2019-08-03] MEDS: ASPIRIN 81 MG TABLET EC PO SCH (08:07)
[2019-08-03] MEDS: MAGNESIUM OXIDE 400 MG TABLET PO SCH (08:07)
[2019-08-03] MEDS: APIXABAN 2.5 MG TABLET PO SCH ×2 (08:07→20:28)
[2019-08-03] MEDS: CALCIUM CARBONATE 500 MG TABLET PO SCH ×2 (08:07→20:28)
[2019-08-03 08:10] VITALS: BP 96/69
[2019-08-03] MEDS: BUPROPION SR 150 MG TABLET PO SCH ×2 (08:14→20:28)
[2019-08-03 13:30] VITALS: BP 96/67
[2019-08-03] MEDS ORDERED: AZITHROMYCIN 500 MG TABLET PO ONE (15:00)
[2019-08-03 15:28] LABS: CULTURE INDICATED? YES; MICROSCOPIC INDICATED
[2019-08-03] MEDS: CEFTRIAXONE PMX 1GM/50ML 50 ML IV SCH (16:04)
[2019-08-03 19:08] VITALS: BP 91/60
[2019-08-03] MEDS: NICOTINE 21 MG/24 HR PATCH.TD24 TD SCH (20:26)
[2019-08-03] MEDS ORDERED: ALBUTEROL SULFATE 2.5 MG/3 ML NPPB PRN (22:00)
[2019-08-04 01:25] VITALS: BP 84/65
[2019-08-04 05:28] LABS: BASOPHILS # (AUTO) 0.02 x10^3/uL (0-0.1); BASOPHILS % (AUTO) 0 % (0-1); EOSINOPHILS # (AUTO) 0.06 x10^3/uL (0-0.4); EOSINOPHILS % (AUTO) 1 % (1-7); LYMPHOCYTES # (AUTO) 0.38 x10^3/uL (1-3.4); LYMPHOCYTES % (AUTO) 3 % (22-44); MD NO; MEAN CORPUSCULAR HEMOGLOBIN 33.4 pg (27.0-34.8); MEAN CORPUSCULAR HGB CONC 32.1 g/dL (32.4-35.8); MEAN CORPUSCULAR VOLUME 104.2 fL (80-100); MEAN PLATELET VOLUME 7.7 fL (7.4-10.4); MONOCYTES % (AUTO) 7 % (2-9); NEUTROPHILS # (AUTO) 10.14 x10^3/uL (1.8-6.8); NEUTROPHILS % (AUTO) 89 % (42-75); PLATELET COUNT 286 x10^3/uL (130-400); RED BLOOD COUNT 3.93 x10^6/uL (3.82-5.3); RED CELL DISTRIBUTION WIDTH 14.3 % (9.6-15.2)
[2019-08-04 05:41] LABS: CHLORIDE 114 mmol/L (98-107)
[2019-08-04 05:50] LABS: ALANINE AMINOTRANSFERASE 13 U/L (12-78); ALBUMIN 2.6 g/dL (3.4-5.0); ALKALINE PHOSPHATASE 59 U/L (45-117); ANION GAP 8 mmol/L (5-15); BILIRUBIN,TOTAL 0.5 mg/dL (0.2-1.0); CALCIUM 7.4 mg/dL (8.5-10.1); CREATININE 0.52 mg/dL (0.55-1.02); TOTAL PROTEIN 5.8 g/dL (6.4-8.2)
[2019-08-04] MEDS: LEVOTHYROXINE 50 MCG TABLET PO SCH (06:06)
[2019-08-04] MEDS: OMEPRAZOLE 20 MG CAPSULE.DR PO SCH (06:06)
[2019-08-04 07:55] VITALS: BP 108/71
[2019-08-04] MEDS ORDERED: ALBUTEROL/IPRATROPIUM 2.5MG/0.5MG, 3 ML NPPB PRN (08:30)
[2019-08-04] MEDS: MAGNESIUM OXIDE 400 MG TABLET PO SCH (09:04)
[2019-08-04] MEDS: ASPIRIN 81 MG TABLET EC PO SCH (09:04)
[2019-08-04] MEDS: AZITHROMYCIN 250 MG TABLET PO SCH (09:04)
[2019-08-04] MEDS: BUPROPION SR 150 MG TABLET PO SCH ×2 (09:04→20:46)
[2019-08-04] MEDS: APIXABAN 2.5 MG TABLET PO SCH ×2 (09:04→20:46)
[2019-08-04] MEDS: CALCIUM CARBONATE 500 MG TABLET PO SCH ×2 (09:05→20:46)
[2019-08-04 13:49] VITALS: BP 75/60
[2019-08-04] MEDS: CEFTRIAXONE PMX 1GM/50ML 50 ML IV SCH (16:40)
[2019-08-04] MEDS: NICOTINE 21 MG/24 HR PATCH.TD24 TD SCH (20:47)
[2019-08-04 21:11] VITALS: BP 96/74
[2019-08-05 01:41] VITALS: BP 98/56
[2019-08-05] MEDS: OMEPRAZOLE 20 MG CAPSULE.DR PO SCH (06:04)
[2019-08-05] MEDS: LEVOTHYROXINE 50 MCG TABLET PO SCH (06:05)
[2019-08-05 06:45] VITALS: BP 95/69
[2019-08-05 09:52] VITALS: BP 104/74
[2019-08-05] MEDS: AZITHROMYCIN 250 MG TABLET PO SCH (10:02)
[2019-08-05] MEDS: CALCIUM CARBONATE 500 MG TABLET PO SCH (10:02)
[2019-08-05] MEDS: ASPIRIN 81 MG TABLET EC PO SCH (10:02)
[2019-08-05] MEDS: BUPROPION SR 150 MG TABLET PO SCH (10:02)
[2019-08-05] MEDS: MAGNESIUM OXIDE 400 MG TABLET PO SCH (10:02)
[2019-08-05] MEDS ORDERED: AZIT250T89 PO (10:13)
[2019-08-05] MEDS ORDERED: PRED20TA PO (10:13)
[2019-08-05] MEDS ORDERED: CEFD300C37 PO (10:16)
== END 2019-08-05 13:22 | disposition hospice, home (50) | DRG 871 ==
LOC: ED 15:54 → 5SO 17:06 → ED 17:11 → 5SO 17:12
PROVIDERS: ADMIT Family Medicine; ATTEND Family Medicine
PROC: 0T9B70Z Drainage of Bladder with Drainage Device, Via Natural or Artificial Opening (ICD-10-PCS; principal; 2019-07-31)
DX: A41.9 Sepsis, unspecified organism (principal); J18.9 Pneumonia, unspecified organism; E46 Unspecified protein-calorie malnutrition; E87.0 Hyperosmolality and hypernatremia; J44.0 Chronic obstructive pulmonary disease with (acute) lower respiratory infection; J44.1 Chronic obstructive pulmonary disease with (acute) exacerbation; J90 Pleural effusion, not elsewhere classified; C34.90 Malignant neoplasm of unspecified part of unspecified bronchus or lung; C16.9 Malignant neoplasm of stomach, unspecified; I24.8 Other forms of acute ischemic heart disease; E03.9 Hypothyroidism, unspecified; E83.41 Hypermagnesemia; E83.42 Hypomagnesemia; E83.51 Hypocalcemia; E86.0 Dehydration; E86.1 Hypovolemia; E87.6 Hypokalemia; F17.210 Nicotine dependence, cigarettes, uncomplicated; I25.2 Old myocardial infarction; I48.0 Paroxysmal atrial fibrillation; J84.10 Pulmonary fibrosis, unspecified; R09.02 Hypoxemia; Z66 Do not resuscitate; Z51.5 Encounter for palliative care; R31.9 Hematuria, unspecified; R62.7 Adult failure to thrive; Z68.20 Body mass index [BMI] 20.0-20.9, adult; Z85.118 Personal history of other malignant neoplasm of bronchus and lung; Z82.49 Family history of ischemic heart disease and other diseases of the circulatory system
CPT/HCPCS: 36415; 70450; 71045; 71260; 74176; 80048; 80053; 80307; 81001; 81003; 82040; 82140; 82306; 82330; 82550; 83605; 83735; 83970; 84100; 84439; 84443; 84484; 85025; 87040; 87086; 93005; 93306; 99291; G0378; J0610; J0696; J1650; J3475; J3480; Q9967; J7030; J7040; J7050; J7512